=== PATIENT | female | born 1965 | race Caucasian/White ===

== ENCOUNTER → 2017-01-11 | Outpatient (CLI) | payer BC ==
--- NOTE | 2017-01-12 11:05 | DI ---
Indication: ITS.REASON: NECK PAIN; LEFT SHOULDER PAIN PROCEDURE: MRI CERVICAL SPINE W/O CONTRAS: Encounter: Initial Comparison: None Technique: Multiplanar multisequence MR imaging of the cervical spine was performed without contrast. Findings: Vertebral heights are maintained with no compression fracture or subluxation. There is no angulation of the dens. Disc spaces are maintained with only mild bulging of the discs throughout the mid and lower cervical spine. There is mild left paracentral disc protrusion at C5-6 with resulting left foraminal narrowing. Mild spurring is seen off endplates asymmetrically at C3-4 also causing left foraminal narrowing. The canal is patent throughout with no spinal stenosis, myelomalacia of the cord or syrinx formation. There is no inferior displacement of cerebellar tonsils. No retropharyngeal soft tissue thickening noted. Thyroid lobes are not enlarged. Impression: 1. Left foraminal narrowing at C3-4 due to hypertrophic spurring off endplates. 2. Left foraminal narrowing at C 5-6 due to left paracentral disc protrusion. .
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
== END ==
LOC: IMA 18:44
PROVIDERS: ATTEND Family Medicine
DX: M50.31 Other cervical disc degeneration, high cervical region (principal); M50.222 Other cervical disc displacement at C5-C6 level; M19.012 Primary osteoarthritis, left shoulder; M75.82 Other shoulder lesions, left shoulder; M25.512 Pain in left shoulder